=== PATIENT | female | born 1985 | race African-American/Black ===

== ENCOUNTER → 2018-10-07 | Outpatient (CLI) | payer MEDICAID ==
--- NOTE | 2018-10-07 11:21 | RADIOLOGY REPORT (SQ) ---
EXAM DESCRIPTION: U/S RETROPERITON (RENAL/AORTA) COMPLETED DATE/TIME: 10/07/2018 10:54 am REASON FOR STUDY: HTN (I10) I10 ESSENTIAL (PRIMARY) HYPERTENSION COMPARISON: None. TECHNIQUE: Dynamic and static grayscale images acquired of the kidneys and bladder and recorded on P ACS. Additional selected color Doppler and spectral images recorded. LIMITATIONS: None. FINDINGS: RIGHT KIDNEY: Normal size, 10.9 cm in length. Normal echogenicity. No solid or suspiciou s masses. No hydronephrosis. No calcifications. LEFT KIDNEY: Normal size, 12.1 cm in length. Normal echogenicity. No solid or suspicious masses. No hydronephrosis. No calcifications. BLADDER: No masses. OTHER FINDINGS: No other significant finding. IMPRESSION: NORMAL RENAL AND BLADDER ULTRASOUND. TECHNICAL DOCUMENTATION: JOB ID: [id number] [employer]- All Rights Reserved Reading location - IP/workstation name: [email or web address]
== END ==
LOC: RAD 09:40
PROVIDERS: ATTEND Nurse Practitioner Adult Health
DX: I10 Essential (primary) hypertension (principal)
CPT/HCPCS: 76770

== ENCOUNTER 2019-01-24 09:54 | Inpatient (IN) | payer MEDICAID ==
[2019-01-24] MEDS ORDERED: ONDANSETRON HCL INJ/PF 4 MG/2 ML SDV IV ONE ×2 (10:18→10:52)
--- NOTE | 2019-01-24 10:19 | ER Document Report ---
ED Medical Screen (RME) - General Chief Complaint: Nausea/Vomiting Stated Complaint: NAUSEA/VOMITING Time Seen by Provider: 01/24/19 10:13 Primary Care Provider: REBECCA BRADLEY FNP-C [Primary Care Provider] - Follow up as needed Mode of Arrival: Wheelchair Information source: Patient Notes: Patient presents complaining of headache that started yesterday with nausea vomiting diarrhea that started this morning. Patient complains of generalized abdominal pain. Patient also complains of feeling weak as well as feeling hot. Patient states that because of her nausea she has not been able to take any of her blood pressure medications today. Patient was given a 4 mg oral tablet of Zofran by a friend at home. I have greeted and performed a rapid initial assessment of this patient. A comprehensive ED assessment and evaluation of the patient, analysis of test results and completion of the medical decision making process will be conducted by additional ED providers. TRAVEL OUTSIDE OF THE [place] IN LAST 30 DAYS: No - Related Data Allergies/Adverse Reactions: No Known Allergies Allergy (Verified 11/11/14 10:47) Past Medical History - Social History Frequency of alcohol use: None Drug Abuse: None - Past Medical History Cardiac Medical History: Reports: Hx Hypertension Pulmonary Medical History: Reports: Hx Asthma Renal/ Medical History: Denies: Hx Peritoneal Dialysis Psychiatric Medical History: Reports: Hx Anxiety Physical Exam - Vital signs Vitals: Temp Pulse Resp BP Pulse Ox 98.0 F 80 16 216/128 H 100 01/24/19 10:02 01/24/19 10:02 01/24/19 10:01/24/19 10:02 01/24/19 10:02 - Abdominal Inspection: Obese Tenderness: Tender - Generalized abdominal tenderness - Neurological Neuro grossly intact: Yes Cognition: Normal Diaz Coma Scale Eye Opening: Spontaneous [place] Coma Scale Verbal: Oriented Diaz Coma Scale Motor: Obeys Commands Diaz Coma Scale Total: 15 Course - Vital Signs Vital signs: Temp Pulse Resp BP Pulse Ox 98.0 F 80 16 216/128 H 100 01/24/19 10:02 01/24/19 10:02 01/24/19 10:02 01/24/19 10:02 01/24/19 10:02 Doctor's Discharge - Discharge Referrals: REBECCA BRADLEY FNP-C [Primary Care Provider] - Follow up as needed
[2019-01-24] MEDS ORDERED: METOCLOPRAMIDE HCL INJ/PF 10 MG/2 ML SDV IV ONE (10:54)
[2019-01-24] MEDS ORDERED: DIPHENHYDRAMINE HCL 50 MG/ML VIAL IV ONE (10:55)
--- NOTE | 2019-01-24 10:55 | RADIOLOGY REPORT (SQ) ---
EXAM DESCRIPTION: CT HEAD WITHOUT COMPLETED DATE/TIME: 01/24/2019 10:41 am REASON FOR STUDY: MORALES, HTN COMPARISON: None. TECHNIQUE: Axial images acquired through the brain without intravenous contrast. Images reviewed wi th bone, brain and subdural windows. Images stored on PACS. All CT scanners at this facility use dose modulation, iterative reconstruction, and/or weight based d osing when appropriate to reduce radiation dose to as low as reasonably achievable (ALARA). [facility]: Dose Right [facility]: [facility]: Dose Right [facility]: Teradose 4D [facility]: [employer] RADIATION DOSE: CT Rad equipment meets quality standard of care and radiation dose reduction techniq ues were employed. CTDIvol: 53.2 mGy. DLP: 937 mGy-cm. mGy. LIMITATIONS: None. FINDINGS: VENTRICLES: Normal size and contour. CEREBRUM: No mass effect. No hemorrhage. No midline shift. Normal fisher/white matter differentiatio n. No evidence for acute territorial infarction. CEREBELLUM: No mass effect. No hemorrhage. No alteration of density. No evidence for acute infarct ion. EXTRAAXIAL SPACES: Prominent CSF intensity scratch at prominent CSF density dorsal to the cerebellum and extending supratentorial. Likely related to congenital variant and/or arachnoid cyst. This zhang ures over 5 cm maximally. ORBITS AND GLOBE: Symmetrical contour of the globes. CALVARIUM: No depressed skull fracture. PARANASAL SINUSES: No air-fluid level. SOFT TISSUES: No hematoma. IMPRESSION: Suspect posterior fossa arachnoid cyst. No evidence of acute intracranial abnormality, however. TECHNICAL DOCUMENTATION: JOB ID: [id number] [facility] [id number]: Final reports with documentation of one or more dose reduction techniques (e.g., Automate d exposure control, adjustment of the mA and/or kV according to patient size, use of iterative recons truction technique) 2010 [employer]- All Rights Reserved Reading location - IP/workstation name: [email or web address]
[2019-01-24 11:10] LABS: ABSOLUTE LYMPHOCYTES (AUTO) 0.8 10^3/uL (0.5-4.7); ABSOLUTE MONOCYTES (AUTO) 0.2 10^3/uL (0.1-1.4); ABSOLUTE NEUT (AUTO) 5.8 10^3/uL (1.7-8.2); BASOPHILS % (AUTO) 0.6 % (0-2); EOSINOPHILS % (AUTO) 0.2 % (0-6); HEMATOCRIT 45.1 % (36.0-47.0); HEMOGLOBIN 15.2 g/dL (12.0-15.5); LYMPHOCYTES % (AUTO) 11.5 % (13-45); MEAN CORPUSCULAR HGB CONC 33.7 g/dL (32.0-36.0); MEAN CORPUSCULAR VOLUME 83 fl (80-97); MONOCYTES % (AUTO) 3.1 % (3-13); PLATELET COUNT 274 10^3/uL (150-450); RED BLOOD COUNT 5.43 10^6/uL (3.72-5.28); RED CELL DISTRIBUTION WIDTH 13.6 % (11.5-14.0); SEGMENTED NEUTROPHILS % (AUTO) 84.6 % (42-78); TOTAL CELLS COUNTED % (AUTO) 100 %; WHITE BLOOD COUNT 6.9 10^3/uL (4.0-10.5)
--- NOTE | 2019-01-24 11:10 | ER Document Report ---
ED General - General Chief Complaint: Nausea/Vomiting Stated Complaint: NAUSEA/VOMITING Time Seen by Provider: 01/24/19 10:13 Primary Care Provider: REBECCA BRADLEY FNP-C [NO LOCAL MD] - Follow up as needed Mode of Arrival: Wheelchair Notes: Patient is complaining of a headache and nausea and vomiting and diarrhea. She says that her best friend told her that she had a headache last night, but patient does not remember it. She was able to sleep off and on last night, but when she awakened around 630 this morning, she went to the bathroom and started vomiting and having diarrhea. She also has a frontal headache. Patient gets headaches, but says that she never gets them this "strong". Patient is supposed to be on blood pressure medicines, but does not take it. Says she feels weak all over. Denies any chest pains. Denies any fever, although she has felt "hot". Patient says she has been evaluated and worked up by a accounting consultant for her high blood pressure. She says it must be inherited because several members of her family have very high blood pressure, as well. TRAVEL OUTSIDE OF THE [place] IN LAST 30 DAYS: No - Related Data Allergies/Adverse Reactions: No Known Allergies Allergy (Verified 11/11/14 10:47) Past Medical History - General Information source: Patient - Social History Smoking Status: Current Every Day Smoker Frequency of alcohol use: None Drug Abuse: None Family History: Reviewed & Not Pertinent Patient has suicidal ideation: No Patient has homicidal ideation: No - Past Medical History Cardiac Medical History: Reports: Hx Hypertension Pulmonary Medical History: Reports: Hx Asthma Endocrine Medical History: Denies: Hx Diabetes Mellitus Type 1, Hx Diabetes Mellitus Type 2 Psychiatric Medical History: Reports: Hx Anxiety Review of Systems - Review of Systems Notes: REVIEW OF SYSTEMS: CONSTITUTIONAL : Denies fever. EENT: Denies eye, ear, nose or mouth or throat pain or other symptoms. No sinus congestion. CARDIOVASCULAR: Denies chest pain. RESPIRATORY: Denies cough, chest congestion, or shortness of breath. GASTROINTESTINAL: Denies abdominal pain but has had nausea, vomiting, and diarrhea this morning. GENITOURINARY: Denies difficulty or painful urinating, urinary frequency, blood in urine. MUSCULOSKELETAL: Denies back or neck pain. Denies joint pain or swelling. SKIN: Denies rash or skin lesions. NEUROLOGICAL: Denies LOC or altered mental status. Complains of frontal headache, see HPI. Denies sensory loss or motor deficits. ALL OTHER SYSTEMS REVIEWED AND NEGATIVE. Physical Exam - Vital signs Vitals: Temp Pulse Resp BP Pulse Ox 98.0 F 80 16 216/128 H 100 01/24/19 10:02 01/24/19 10:02 01/24/19 10:02 01/24/19 10:02 01/24/19 10:02 Interpretation: Hypertensive Notes: PHYSICAL EXAMINATION: GENERAL: Well-appearing, in no acute distress. Blood pressure in triage in the right arm 222/139 and 216/128 in the left arm. HEAD: Atraumatic, normocephalic. EYES: Pupils equal round and reactive to light, extraocular movements intact. ENT: oropharynx clear without exudates. Moist mucous membranes. NECK: Normal range of motion, supple. LUNGS: Breath sounds clear and equal bilaterally. HEART: Regular rate and rhythm without murmurs. ABDOMEN: Soft, nontender. No guarding or rebound. No masses. BACK: No tenderness throughout entire back. EXTREMITIES: Normal range of motion without pain. NEUROLOGICAL: Normal speech, normal gait. Normal sensory, motor, and reflex exams. Awake, alert, and oriented x3. Cranial nerves normal. PSYCH: Normal mood, normal affect. SKIN: Warm, dry, no rashes. Course - Re-evaluation Re-evalutation: 01/24/19 11:29 Patient says she still has the headache, but her nausea is better. Blood pressure still quite high with systolic of 240. I am giving her 10 mg of h ydralazine IV and 0.1 mg of Catapres (clonidine) p.o. Patient CT of her head shows a probable arachnoid cyst in the posterior fossa. No evidence of any hemorrhage or bleeding. 01/24/19 13:44 Blood pressure is trended downward to a reasonable 185/107. Patient says she feels better. Little headache now and no longer nauseated. I have spoken with hospitalist who will admit the patient for management of her blood pressure. - Vital Signs Vital signs: Temp Pulse Resp BP Pulse Ox 98.0 F 80 20 185/107 H 96 01/24/19 10:02 01/24/19 10:02 01/24/19 13:18 01/24/19 13:18 01/24/19 13:18 - Laboratory Result Diagrams: 01/24/19 10:53 01/24/19 10:53 Laboratory results interpreted by me: 01/24/19 01/24/19 01/24/19 10:53 10:53 11:54 RBC 5.43 H Seg Neutrophils % 84.6 H Lymphocytes % 11.5 L Glucose 121 H Total Protein 8.4 H Urine Protein 100 H Urine Blood MODERATE H - Diagnostic Test Radiology reviewed: Image reviewed, Reports reviewed - Patient has an arachnoid cyst, but no acute changes and no bleeding or evidence of stroke. - EKG Interpretation by Oh EKG shows normal: Sinus rhythm Rate: Normal Rhythm: NSR Additional EKG results interpreted by me: 01/24/19 13:45 EKG shows no evidence of elevated ST segment or any acute changes. Discharge - Discharge Clinical Impression: Hypertension, Vomiting Condition: Stable Disposition: ADMITTED INPATIENT Admitting Provider: Brianda (Hospitalist) Unit Admitted: Telemetry Referrals: REBECCA BRADLEY FNP-C [NO LOCAL MD] - Follow up as needed
[2019-01-24] MEDS ORDERED: HYDRALAZINE HCL INJ/PF 20 MG/1 ML SDV IV ONE (11:28)
[2019-01-24] MEDS ORDERED: CLONIDINE HCL 0.1 MG TABLET PO ONE (11:28)
[2019-01-24 11:30] LABS: ALANINE AMINOTRANSFERASE 27 U/L (9-52); ALBUMIN 4.9 g/dL (3.5-5.0); ALKALINE PHOSPHATASE 72 U/L (38-126); ANION GAP 14 (5-19); ASPARTATE AMINO TRANSFERASE 23 U/L (14-36); BILIRUBIN,DIRECT 0.3 mg/dL (0.0-0.4); BILIRUBIN,TOTAL 1.1 mg/dL (0.2-1.3); BLOOD UREA NITROGEN 16 mg/dL (7-20); CALCIUM 10.2 mg/dL (8.4-10.2); CARBON DIOXIDE 27 mmol/L (22-30); CHLORIDE 99 mmol/L (98-107); GLUCOSE 121 mg/dL (75-110); LIPASE 76.6 U/L (23-300); POTASSIUM 3.8 mmol/L (3.6-5.0); SODIUM 139.5 mmol/L (137-145); TOTAL PROTEIN 8.4 g/dL (6.3-8.2)
[2019-01-24 12:24] LABS: APPEARANCE,URINE CLEAR; BILIRUBIN,URINE NEGATIVE (NEGATIVE); COLOR,URINE YELLOW; GLUCOSE, URINE NEGATIVE (NEGATIVE); KETONES,URINE NEGATIVE (NEGATIVE); LEUKOCYTE ESTERASE,URINE NEGATIVE (NEGATIVE); NITRITE,URINE NEGATIVE (NEGATIVE); PROTEIN,URINE 100 mg/dL (NEGATIVE); URINE SPECIFIC GRAVITY 1.018; UROBILINOGEN,URINE NEGATIVE mg/dL (<2.0)
[2019-01-24] MEDS ORDERED: ACETAMINOPHEN 325 MG TABLET PO PRN (14:09)
[2019-01-24] MEDS ORDERED: PROMETHAZINE HCL INJ 25 MG/1 ML VIAL IV PRN (14:09)
[2019-01-24] MEDS ORDERED: ONDANSETRON HCL INJ/PF 4 MG/2 ML SDV IV PRN (14:09)
[2019-01-24] MEDS ORDERED: LOSARTAN POTASSIUM 50 MG TABLET PO SCH (14:15)
--- NOTE | 2019-01-24 14:28 | PDOC H&P ---
History of Present Illness Admission Date/PCP: 01/24/19 13:54 Patient complains of: Nausea vomiting and abdominal pain from this morning History of Present Illness: ELEUTERIO BUNCH is a 33 year old female history of obesity with BMI of more than 44 and hypertension on 4 antihypertensives came to the emergency room complaining of nausea vomiting and diarrhea from this morning. Also complaining of mild abdominal pain she is also given the history of chills and cold coming and going. She was perfectly fine last night. Also complaining of headaches. Because of the nausea vomiting's Ms. to take her medications. test was negative in the ER. Denies any chest pains. On examination alert oriented communicating well agreed to stay in the hospital. Past Medical History Cardiac Medical History: Reports: Hypertension Pulmonary Medical History: Reports: Asthma Endocrine Medical History: Denies: Diabetes Mellitus Type 1, Diabetes Mellitus Type 2 Past Surgical History Past Surgical History: Reports: None Social History Smoking Status: Current Every Day Smoker Frequency of Alcohol Use: Occasional Hx Recreational Drug Use: No Hx Prescription Drug Abuse: No - Advance Directive Resuscitation Status: Full Code Family History Family History: Reviewed & Not Pertinent Parental Family History Reviewed: Yes - Hypertension and diabetes Children Family History Reviewed: Yes Sibling(s) Family History Reviewed.: Yes Medication/Allergy Home Medications: Carvedilol [Coreg 25 mg Tablet] 25 mg PO Q12 MDD SEE LABEL COMMENTS!!!!!!!!!!!! 01/24/19 Chlorthalidone [Chlorthalidone 50 mg Tablet] 100 mg PO DAILY MDD SEE LABEL COMMENTS!!!!!!!!!!!! 01/24/19 Hydralazine HCl [Apresoline 25 mg Tablet] 25 mg PO Q8 MDD SEE LABEL COMMENTS!!!!!!!!!!! 01/24/19 Losartan Potassium [Cozaar 100 mg Tablet] 100 mg PO DAILY MDD SEE LABEL COMMENTS!!!!!!!!!!!! 01/24/19 Allergies/Adverse Reactions: No Known Allergies Allergy (Verified 11/11/14 10:47) Review of Systems Constitutional: PRESENT: headache(s). ABSENT: fatigue, fever(s), night sweats, weakness, weight loss Eyes: ABSENT: visual disturbances Ears: ABSENT: hearing changes Nose, Mouth, and Throat: ABSENT: sore throat Cardiovascular: ABSENT: chest pain, dyspnea on exertion, edema, orthropnea, palpitations Respiratory: ABSENT: cough, hemoptysis Gastrointestinal: PRESENT: diarrhea, nausea, vomiting, other - Mild abdominal pain Genitourinary: ABSENT: dysuria, hematuria Musculoskeletal: PRESENT: as per HPI Neurological: PRESENT: other - Severe headaches. ABSENT: abnormal gait, abnormal speech, confusion, dizziness, focal weakness, syncope Psychiatric: ABSENT: anxiety, depression, homidical ideation, suicidal ideation Physical Exam Vital Signs: Temp Pulse Resp BP Pulse Ox 98.0 F 80 18 181/101 H 100 01/24/19 10:02 01/24/19 10:02 01/24/19 14:00 01/24/19 13:31 01/24/19 14:00 Intake & Output 01/23/19 01/24/19 01/25/19 06:59 06:59 06:59 Weight 113.9 kg General appearance: PRESENT: mild distress, morbidly obese Head exam: PRESENT: atraumatic Eye exam: PRESENT: PERRLA Ear exam: PRESENT: normal external ear exam Teeth exam: PRESENT: poor dentation Neck exam: ABSENT: carotid bruit, JVD, lymphadenopathy, thyromegaly Respiratory exam: PRESENT: decreased breath sounds Cardiovascular exam: PRESENT: bradycardia GI/Abdominal exam: PRESENT: normal bowel sounds, soft. ABSENT: distended, guarding, mass, organolmegaly, rebound, tenderness Rectal exam: PRESENT: deferred Neurological exam: PRESENT: alert, awake, oriented to person, oriented to place, oriented to time, oriented to situation, CN II-XII grossly intact. ABSENT: motor sensory deficit Psychiatric exam: PRESENT: appropriate affect, normal mood. ABSENT: homicidal ideation, suicidal ideation Results Laboratory Results: 01/24/19 10:53 01/24/19 10:53 01/24/19 01/24/19 01/24/19 10:53 10:53 10:53 WBC 6.9 RBC 5.43 H Hgb 15.2 Hct 45.1 MCV 83 MCH 28.0 MCHC 33.7 RDW 13.6 Plt Count 274 Seg Neutrophils % 84.6 H Lymphocytes % 11.5 L Monocytes % 3.1 Eosinophils % 0.2 Basophils % 0.6 Absolute Neutrophils 5.8 Absolute Lymphocytes 0.8 Absolute Monocytes 0.2 Absolute Eosinophils 0.0 Absolute Basophils 0.0 Sodium 139.5 Potassium 3.8 Chloride 99 Carbon Dioxide 27 Anion Gap 14 BUN 16 Creatinine 0.98 Est GFR ( Amer) > 60 Est GFR (Non-Af Amer) > 60 Glucose 121 H Calcium 10.2 Total Bilirubin 1.1 AST 23 ALT 27 Alkaline Phosphatase 72 Total Protein 8.4 H Albumin 4.9 Lipase 76.6 Serum HCG, Qual NEGATIVE Urine Color Urine Appearance Urine pH Ur Specific [place] Urine Protein Urine Glucose (UA) Urine Ketones Urine Blood Urine Nitrite Ur Leukocyte Esterase Urine WBC (Auto) Urine RBC (Auto) 01/24/19 11:54 WBC RBC Hgb Hct MCV MCH MCHC RDW Plt Count Seg Neutrophils % Lymphocytes % Monocytes % Eosinophils % Basophils % Absolute Neutrophils Absolute Lymphocytes Absolute Monocytes Absolute Eosinophils Absolute Basophils Sodium Potassium Chloride Carbon Dioxide Anion Gap BUN Creatinine Est GFR ( Amer) Est GFR (Non-Af Amer) Glucose Calcium Total Bilirubin AST ALT Alkaline Phosphatase Total Protein Albumin Lipase Serum HCG, Qual Urine Color YELLOW Urine Appearance CLEAR Urine pH 7.0 Ur Specific [place] 1.018 Urine Protein 100 H Urine Glucose (UA) NEGATIVE Urine Ketones NEGATIVE Urine Blood MODERATE H Urine Nitrite NEGATIVE Ur Leukocyte Esterase NEGATIVE Urine WBC (Auto) 3 Urine RBC (Auto) 1 Impressions: Head CT 01/24/19 10:17 IMPRESSION: Suspect posterior fossa arachnoid cyst. No evidence of acute intracranial abnormality, however. Assessment and Plan - Diagnosis (1) Hypertensive urgency Is this a current diagnosis for this admission?: Yes Plan: 01[birth year]24/20198378-12-jet[age]-old female came to the emergency room with very high blood pressures systolic blood pressure more than 200 diastolic blood pressure more than 120 associated with nausea vomiting diarrhea and mild abdominal pain and severe headaches. CT head was negative for acute changes. She is going to be admitted to telemetry started on the act diet. Cardiac enzymes x3 requested. Her most home medications Coreg 25 mg p.o. twice daily, losartan 100 mg p.o. daily, chlorthalidone 50 mg 2 tablets in the morning, hydralazine 25 mg p.o. 3 times daily are restarted. Patient was started on Protonix 40 mg p.o. twice daily and Zofran 4 mg IV every 4 as needed for nausea and vomiting. To check blood pressures every 4 hours. Urine drug screen is requested. DVT prophylaxis and GI prophylaxis are initiated. On examination no abd bruit. Started on hydralazine 10 mg IV q. 4 as needed for systolic blood pressure more than 150. (2) Morbidly obese Is this a current diagnosis for this admission?: Yes Plan: 01/24/2019-patient BMI is 44. Diet exercise weight loss lifestyle modifications are discussed dietary consult was requested. (3) Tobacco abuse Is this a current diagnosis for this admission?: Yes Plan: 01/24/2019-patient given the history of chronic smoking. Smoking counseling was provided for more than 10 minutes and nicotine patches offered. - Time Time Spent with patient: 25-34 minutes Smoking Cessation Education: over 10 minutes Medications reviewed and adjusted accordingly: Yes Anticipated discharge: Home
[2019-01-24 14:51] LABS: CREATINE KINASE MB 0.97 ng/mL (<4.55)
[2019-01-24 14:54] LABS: URINE AMPHETAMINES SCREEN NEGATIVE; URINE BARBITURATES SCREEN NEGATIVE; URINE BENZODIAZEPINES SCREEN NEGATIVE; URINE COCAINE SCREEN NEGATIVE; URINE MARIJUANA (THC) SCREEN NEGATIVE; URINE METHADONE SCREEN NEGATIVE; URINE PHENCYCLIDINE SCREEN NEGATIVE
[2019-01-24 14:56] LABS: TROPONIN I < 0.012 ng/mL
[2019-01-24] MEDS: ENOXAPARIN SODIUM INJ 40 MG/0.4 ML DISP.SYRIN SUBCUT SCH (15:09)
[2019-01-24] MEDS: HYDRALAZINE HCL 25 MG TABLET PO SCH ×2 (15:09→22:19)
[2019-01-24] MEDS: PANTOPRAZOLE SODIUM 40 MG TABLET.DR PO SCH (16:38)
[2019-01-24] MEDS: CHLORTHALIDONE 25 MG TABLET PO SCH (16:38)
[2019-01-24 17:32] LABS: CREATINE KINASE MB 0.88 ng/mL (<4.55)
[2019-01-24 17:40] LABS: TROPONIN I < 0.012 ng/mL
--- NOTE | 2019-01-24 18:01 | RADIOLOGY REPORT (SQ) ---
EXAM DESCRIPTION: CHEST 2 VIEWS COMPLETED DATE/TIME: 01/24/2019 5:39 pm REASON FOR STUDY: shortness of breath COMPARISON: Chest x-ray 08/05/2013. EXAM PARAMETERS: NUMBER OF VIEWS: two views TECHNIQUE: Digital Frontal and Lateral radiographic views of the chest acquired. RADIATION DOSE: NA LIMITATIONS: none FINDINGS: LUNGS AND PLEURA: No consolidation, pneumothorax or pleural effusion. MEDIASTINUM AND HILAR STRUCTURES: No masses or contour abnormalities. HEART AND VASCULAR STRUCTURES: Heart normal size. No evidence for failure. BONES: No acute findings. HARDWARE: None in the chest. IMPRESSION: NO ACUTE RADIOGRAPHIC FINDING IN THE CHEST. TECHNICAL DOCUMENTATION: JOB ID: [id number] 2010 [employer]- All Rights Reserved Reading location - IP/workstation name: [email or web address]
[2019-01-24] MEDS: CARVEDILOL 12.5 MG TABLET PO SCH (22:19)
--- NOTE | 2019-01-24 23:42 | EKG REPORT ---
SEVERITY:- ABNORMAL ECG - SINUS RHYTHM PROLONGED QT INTERVAL : Confirmed by: Bijal Gaitan MD 24-Jan-2019 23:41:42
[2019-01-25 05:02] LABS: ABSOLUTE EOSINOPHILS # (AUTO) 0.1 10^3/uL (0.0-0.6); ABSOLUTE MONOCYTES (AUTO) 0.6 10^3/uL (0.1-1.4); ABSOLUTE NEUT (AUTO) 4.8 10^3/uL (1.7-8.2); BASOPHILS % (AUTO) 0.3 % (0-2); EOSINOPHILS % (AUTO) 1.1 % (0-6); HEMATOCRIT 40.3 % (36.0-47.0); HEMOGLOBIN 13.5 g/dL (12.0-15.5); LYMPHOCYTES % (AUTO) 26.9 % (13-45); MEAN CORPUSCULAR HEMOGLOBIN 28.1 pg (27.0-33.4); MEAN CORPUSCULAR HGB CONC 33.6 g/dL (32.0-36.0); MEAN CORPUSCULAR VOLUME 84 fl (80-97); MONOCYTES % (AUTO) 7.4 % (3-13); PLATELET COUNT 260 10^3/uL (150-450); RED BLOOD COUNT 4.81 10^6/uL (3.72-5.28); RED CELL DISTRIBUTION WIDTH 13.5 % (11.5-14.0); SEGMENTED NEUTROPHILS % (AUTO) 64.3 % (42-78); TOTAL CELLS COUNTED % (AUTO) 100 %; WHITE BLOOD COUNT 7.5 10^3/uL (4.0-10.5)
[2019-01-25 05:17] LABS: INTERNATIONAL RATION (INR) 0.98; PROTHROMBIN TIME 13.4 SEC (11.4-15.4)
[2019-01-25 05:27] LABS: ALANINE AMINOTRANSFERASE 21 U/L (9-52); ALBUMIN 3.7 g/dL (3.5-5.0); ALKALINE PHOSPHATASE 51 U/L (38-126); ANION GAP 11 (5-19); ASPARTATE AMINO TRANSFERASE 14 U/L (14-36); BILIRUBIN,DIRECT 0.2 mg/dL (0.0-0.4); BILIRUBIN,TOTAL 0.6 mg/dL (0.2-1.3); BLOOD UREA NITROGEN 19 mg/dL (7-20); CALCIUM 8.8 mg/dL (8.4-10.2); CARBON DIOXIDE 27 mmol/L (22-30); CHLORIDE 102 mmol/L (98-107); CHOLESTEROL 169.62 mg/dL (0-200); GLUCOSE 103 mg/dL (75-110); POTASSIUM 3.4 mmol/L (3.6-5.0); SODIUM 139.9 mmol/L (137-145); TOTAL PROTEIN 6.8 g/dL (6.3-8.2); TRIGLYCERIDES 96 mg/dL (<150)
[2019-01-25 05:37] LABS: DIRECT LDL 112 mg/dL (<100)
[2019-01-25 05:38] LABS: CREATINE KINASE MB 0.75 ng/mL (<4.55); TROPONIN I 0.061 ng/mL
[2019-01-25] MEDS: HYDRALAZINE HCL 25 MG TABLET PO SCH ×3 (05:47→21:10)
[2019-01-25] MEDS: PANTOPRAZOLE SODIUM 40 MG TABLET.DR PO SCH ×2 (05:47→16:12)
[2019-01-25] MEDS ORDERED: POTASSIUM CHLORIDE 10 MEQ CAPSULE.ER PO ONE (08:08)
[2019-01-25] MEDS: CHLORTHALIDONE 25 MG TABLET PO SCH (09:26)
[2019-01-25] MEDS: CARVEDILOL 12.5 MG TABLET PO SCH ×2 (09:26→21:10)
[2019-01-25] MEDS: ENOXAPARIN SODIUM INJ 40 MG/0.4 ML DISP.SYRIN SUBCUT SCH (09:28)
[2019-01-25] MEDS: 1/2 NORMAL SALINE 1,000 ML IV PRN ×2 (09:42→21:10)
[2019-01-25] MEDS ORDERED: CHLORTHALIDONE 100 MG PO SCH (10:00)
--- NOTE | 2019-01-25 10:00 | PDOC PROGRESS REPORT ---
Subjective Progress Note for:: 01/25/19 Subjective:: 33 year old female history of obesity with BMI of more than 44 and hypertension on 4 antihypertensives came to the emergency room complaining of nausea vomiting and diarrhea from this morning. Also complaining of mild abdominal pain she is also given the history of chills and cold coming and going. She was perfectly fine last night. Also complaining of headaches. Because of the nausea vomiting's Ms. to take her medications. test was negative in the ER. Denies any chest pains. On examination alert oriented communicating well agreed to stay in the hospital. 33-year-old female with history of hypertension and BMI of more than 44 admitted with hypertensive urgency and also complaining of nausea vomiting and diarrhea nausea vomiting and diarrhea resolved her blood pressure today is 1 4784 improved but her baseline creatinine is unknown she came in with creatinine of 0.98 and today's creatinine is 1.48. Acute kidney injury may be secondary to poor oral intake. She may have to stay another day at least to get IV fluids and the plan is to recheck the labs tomorrow. Reason For Visit: HYPERTENSION URGENCY Physical Exam Vital Signs: Temp Pulse Resp BP Pulse Ox 98.1 F 77 18 142/95 H 97 01/25/19 08:00 01/25/19 08:00 01/25/19 08:00 01/25/19 08:00 01/25/19 08:00 Intake & Output 01/24/19 01/25/19 01/26/19 06:59 06:59 06:59 Intake Total 740 Balance 740 Weight 116.3 kg General appearance: PRESENT: no acute distress Head exam: PRESENT: atraumatic Eye exam: PRESENT: PERRLA Mouth exam: PRESENT: moist, tongue midline Respiratory exam: PRESENT: clear to auscultation [place]. ABSENT: rales, rhonchi, wheezes Cardiovascular exam: PRESENT: RRR. ABSENT: diastolic murmur, rubs, systolic murmur GI/Abdominal exam: PRESENT: normal bowel sounds, soft. ABSENT: distended, guarding, mass, organolmegaly, rebound, tenderness Rectal exam: PRESENT: deferred Neurological exam: PRESENT: alert, awake, oriented to person, oriented to place, oriented to time, oriented to situation, CN II-XII grossly intact. ABSENT: motor sensory deficit Psychiatric exam: PRESENT: appropriate affect, normal mood. ABSENT: homicidal ideation, suicidal ideation Results Laboratory Results: 01/25/19 04:02 01/25/19 04:02 01/24/19 01/24/19 01/24/19 10:53 10:53 10:53 WBC 6.9 RBC 5.43 H Hgb 15.2 Hct 45.1 MCV 83 MCH 28.0 MCHC 33.7 RDW 13.6 Plt Count 274 Seg Neutrophils % 84.6 H Lymphocytes % 11.5 L Monocytes % 3.1 Eosinophils % 0.2 Basophils % 0.6 Absolute Neutrophils 5.8 Absolute Lymphocytes 0.8 Absolute Monocytes 0.2 Absolute Eosinophils 0.0 Absolute Basophils 0.0 Sodium 139.5 Potassium 3.8 Chloride 99 Carbon Dioxide 27 Anion Gap 14 BUN 16 Creatinine 0.98 Est GFR ( Amer) > 60 Est GFR (Non-Af Amer) > 60 Glucose 121 H Calcium 10.2 Magnesium Total Bilirubin 1.1 AST 23 ALT 27 Alkaline Phosphatase 72 Total Protein 8.4 H Albumin 4.9 Triglycerides Cholesterol LDL Cholesterol Direct VLDL Cholesterol HDL Cholesterol Lipase 76.6 TSH Serum HCG, Qual NEGATIVE Urine Color Urine Appearance Urine pH Ur Specific Rena Lara Urine Protein Urine Glucose (UA) Urine Ketones Urine Blood Urine Nitrite Ur Leukocyte Esterase Urine WBC (Auto) Urine RBC (Auto) 01/24/19 01/25/19 01/25/19 11:54 04:02 04:02 WBC 7.5 RBC 4.81 Hgb 13.5 Hct 40.3 MCV 84 MCH 28.1 MCHC 33.6 RDW 13.5 Plt Count 260 Seg Neutrophils % 64.3 Lymphocytes % 26.9 Monocytes % 7.4 Eosinophils % 1.1 Basophils % 0.3 Absolute Neutrophils 4.8 Absolute Lymphocytes 2.0 Absolute Monocytes 0.6 Absolute Eosinophils 0.1 Absolute Basophils 0.0 Sodium 139.9 Potassium 3.4 L Chloride 102 Carbon Dioxide 27 Anion Gap 11 BUN 19 Creatinine 1.43 H Est GFR ( Amer) 51 L Est GFR (Non-Af Amer) 42 L Glucose 103 Calcium 8.8 Magnesium 2.2 Total Bilirubin 0.6 AST 14 ALT 21 Alkaline Phosphatase 51 Total Protein 6.8 Albumin 3.7 Triglycerides 96 Cholesterol 169.62 LDL Cholesterol Direct 112 H VLDL Cholesterol 19.0 HDL Cholesterol 40 Lipase TSH Serum HCG, Qual Urine Color YELLOW Urine Appearance CLEAR Urine pH 7.0 Ur Specific Rena Lara 1.018 Urine Protein 100 H Urine Glucose (UA) NEGATIVE Urine Ketones NEGATIVE Urine Blood MODERATE H Urine Nitrite NEGATIVE Ur Leukocyte Esterase NEGATIVE Urine WBC (Auto) 3 Urine RBC (Auto) 1 01/25/19 04:02 WBC RBC Hgb Hct MCV MCH MCHC RDW Plt Count Seg Neutrophils % Lymphocytes % Monocytes % Eosinophils % Basophils % Absolute Neutrophils Absolute Lymphocytes Absolute Monocytes Absolute Eosinophils Absolute Basophils Sodium Potassium Chloride Carbon Dioxide Anion Gap BUN Creatinine Est GFR ( Amer) Est GFR (Non-Af Amer) Glucose Calcium Magnesium Total Bilirubin AST ALT Alkaline Phosphatase Total Protein Albumin Triglycerides Cholesterol LDL Cholesterol Direct VLDL Cholesterol HDL Cholesterol Lipase TSH 0.95 Serum HCG, Qual Urine Color Urine Appearance Urine pH Ur Specific Rena Lara Urine Protein Urine Glucose (UA) Urine Ketones Urine Blood Urine Nitrite Ur Leukocyte Esterase Urine WBC (Auto) Urine RBC (Auto) 01/24/19 01/24/19 01/24/19 10:53 10:53 16:44 Creatine Kinase 194 H 153 H CK-MB (CK-2) 0.97 Troponin I < 0.012 01/24/19 01/25/19 01/25/19 16:44 04:02 04:02 Creatine Kinase 148 H CK-MB (CK-2) 0.88 0.75 Troponin I < 0.012 0.061 Impressions: Chest X-Ray 01/24/19 00:00 IMPRESSION: NO ACUTE RADIOGRAPHIC FINDING IN THE CHEST. Head CT 01/24/19 10:17 IMPRESSION: Suspect posterior fossa arachnoid cyst. No evidence of acute intracranial abnormality, however. Assessment and Plan - Diagnosis (1) Hypertensive urgency Is this a current diagnosis for this admission?: Yes Plan: 01/24/[id number]-vmub-old female came to the emergency room with very high blood pressures systolic blood pressure more than 200 diastolic blood pressure more than 120 associated with nausea vomiting diarrhea and mild abdominal pain and severe headaches. CT head was negative for acute changes. She is going to be admitted to telemetry started on the act diet. Cardiac enzymes x3 requested. Her most home medications Coreg 25 mg p.o. twice daily, losartan 100 mg p.o. daily, chlorthalidone 50 mg 2 tablets in the morning, hydralazine 25 mg p.o. 3 times daily are restarted. Patient was started on Protonix 40 mg p.o. twice daily and Zofran 4 mg IV every 4 as needed for nausea and vomiting. To check blood pressures every 4 hours. Urine drug screen is requested. DVT prophylaxis and GI prophylaxis are initiated. On examination no abd bruit. Started on hydralazine 10 mg IV q. 4 as needed for systolic blood pressure more than 150. 01/25/[id number]-cffd-old female admitted with hypertensive urgency blood pressure relatively controlled well today's blood pressure is 147/84. Patient developed JUDE from last night losartan was discontinued and plan is to continue the other management including IV hydralazine 10 mg every 6 hours for systolic blood pr essure more than 150. (2) Morbidly obese Is this a current diagnosis for this admission?: Yes (3) Tobacco abuse Is this a current diagnosis for this admission?: Yes (4) JUDE (acute kidney injury) Is this a current diagnosis for this admission?: Yes Plan: 01/25/2019-patient's admission serum creatinine is 0.98 and a repeat serum creatinine is 1.48. Acute kidney injury may be secondary to nausea vomiting diarrhea. Patient came to the hospital with elbow symptoms and though symptoms are resolved. - Time Time Spent with patient: 15-24 minutes Medications reviewed and adjusted accordingly: Yes Anticipated discharge: Home
[2019-01-25] MEDS ORDERED: MAGNESIUM CITRATE 296 ML BOTTLE PO ONE (16:04)
[2019-01-25] MEDS: HYDRALAZINE HCL INJ/PF 20 MG/1 ML SDV IV PRN (16:07)
[2019-01-25] MEDS ORDERED: HYDRALAZINE HCL INJ/PF 20 MG/1 ML SDV IV ONE (17:30)
[2019-01-26 05:22] LABS: ABSOLUTE EOSINOPHILS # (AUTO) 0.1 10^3/uL (0.0-0.6); ABSOLUTE MONOCYTES (AUTO) 0.3 10^3/uL (0.1-1.4); ABSOLUTE NEUT (AUTO) 2.4 10^3/uL (1.7-8.2); BASOPHILS % (AUTO) 0.5 % (0-2); EOSINOPHILS % (AUTO) 1.2 % (0-6); HEMATOCRIT 41.6 % (36.0-47.0); HEMOGLOBIN 13.7 g/dL (12.0-15.5); LYMPHOCYTES % (AUTO) 41.4 % (13-45); MEAN CORPUSCULAR HEMOGLOBIN 27.8 pg (27.0-33.4); MEAN CORPUSCULAR VOLUME 84 fl (80-97); MONOCYTES % (AUTO) 6.9 % (3-13); PLATELET COUNT 237 10^3/uL (150-450); RED BLOOD COUNT 4.95 10^6/uL (3.72-5.28); RED CELL DISTRIBUTION WIDTH 13.5 % (11.5-14.0); TOTAL CELLS COUNTED % (AUTO) 100 %; WHITE BLOOD COUNT 4.8 10^3/uL (4.0-10.5)
[2019-01-26 05:48] LABS: ALANINE AMINOTRANSFERASE 21 U/L (9-52); ALBUMIN 3.8 g/dL (3.5-5.0); ALKALINE PHOSPHATASE 57 U/L (38-126); ANION GAP 12 (5-19); ASPARTATE AMINO TRANSFERASE 14 U/L (14-36); BILIRUBIN,DIRECT 0.2 mg/dL (0.0-0.4); BILIRUBIN,TOTAL 0.9 mg/dL (0.2-1.3); BLOOD UREA NITROGEN 16 mg/dL (7-20); CALCIUM 9.2 mg/dL (8.4-10.2); CARBON DIOXIDE 25 mmol/L (22-30); CHLORIDE 103 mmol/L (98-107); GLUCOSE 96 mg/dL (75-110); POTASSIUM 3.7 mmol/L (3.6-5.0); SODIUM 139.8 mmol/L (137-145); TOTAL PROTEIN 6.9 g/dL (6.3-8.2)
[2019-01-26] MEDS: HYDRALAZINE HCL 25 MG TABLET PO SCH (06:47)
[2019-01-26] MEDS: PANTOPRAZOLE SODIUM 40 MG TABLET.DR PO SCH (06:47)
[2019-01-26] MEDS: 1/2 NORMAL SALINE 1,000 ML IV PRN (06:48)
[2019-01-26] MEDS ORDERED: PROMETHAZINE HCL INJ 25 MG/1 ML VIAL IV PRN (09:30)
--- NOTE | 2019-01-26 10:29 | PDOC DISCHARGE SUMMARY ---
General - Admit/Disc Date/PCP Admission Date/Primary Care Provider: 01/24/19 13:54 Discharge Date: 01/26/19 - Discharge Diagnosis (1) Hypertensive urgency Is this a current diagnosis for this admission?: Yes Summary: 01/24/[id number]-kxyc-old female came to the emergency room with very high blood pressures systolic blood pressure more than 200 diastolic blood pressure more than 120 associated with nausea vomiting diarrhea and mild abdominal pain and severe headaches. CT head was negative for acute changes. She is going to be admitted to telemetry started on the act diet. Cardiac enzymes x3 requested. Her most home medications Coreg 25 mg p.o. twice daily, losartan 100 mg p.o. daily, chlorthalidone 50 mg 2 tablets in the morning, hydralazine 25 mg p.o. 3 times daily are restarted. Patient was started on Protonix 40 mg p.o. twice daily and Zofran 4 mg IV every 4 as needed for nausea and vomiting. To check blood pressures every 4 hours. Urine drug screen is requested. DVT prophylaxis and GI prophylaxis are initiated. On examination no abd bruit. Started on hydralazine 10 mg IV q. 4 as needed for systolic blood pressure more than 150. 01/25/[id number]-bdwo-old female admitted with hypertensive urgency blood pressure relatively controlled well today's blood pressure is 147/84. Patient developed JUDE from last night losartan was discontinued and plan is to continue the other management including IV hydralazine 10 mg every 6 hours for systolic blood pressure more than 150. 01/26/[id number]-gyld-old female admitted with hypertensive urgency in the emergency room systolic blood pressure is more than 200 on her diastolic blood pressures more than 120. IV hydralazine and clonidine was given in the emergency room. Blood pressures are much improved during the hospital stay after instillation of the home medications. Losartan was discontinued because patient developed JUDE during the hospital stay. And she was also started on IV fluids half-normal saline at 100 cc/h today's blood pressure is 138/73. Patient is advised to continue to hold her losartan and follow-up with primary care physician in 3 to 5 days for further evaluation and management. (2) Morbidly obese Is this a current diagnosis for this admission?: Yes Summary: 01/26/2019-patient BMI is more than 45 diet exercise weight loss lifestyle modifications are discussed during the hospital stay and dietary consult was requested during the hospital stay. (3) Tobacco abuse Is this a current diagnosis for this admission?: Yes (4) JUDE (acute kidney injury) Is this a current diagnosis for this admission?: Yes Summary: 01/25/2019-patient's admission serum creatinine is 0.98 and a repeat serum creatinine is 1.48. Acute kidney injury may be secondary to nausea vomiting diarrhea. Patient came to the hospital with elbow symptoms and though symptoms are resolved. 01/26/2019-patient's admission creatinine is 0.98 worsened to 1.48 with IV fluids it was improved to 1.11 today acute kidney injury most likely secondary to n ausea vomitings and diarrhea resolving. - Additional Information Resuscitation Status: Full Code Discharge Diet: Cardiac Discharge Activity: Activity As Tolerated Prescriptions: Alprazolam [Xanax 0.5 mg Tablet] 0.5 mg PO Q8HP PRN 3 Days #10 tab PRN Reason: Home Medications: Carvedilol [Coreg 25 mg Tablet] 25 mg PO Q12 MDD SEE LABEL COMMENTS!!!!!!!!!!!! 01/24/19 Chlorthalidone [Chlorthalidone 50 mg Tablet] 100 mg PO DAILY MDD SEE LABEL COMMENTS!!!!!!!!!!!! 01/24/19 Hydralazine HCl [Apresoline 25 mg Tablet] 25 mg PO Q8 MDD SEE LABEL COMMENTS!!!!!!!!!!! 01/24/19 Alprazolam [Xanax 0.5 mg Tablet] 0.5 mg PO Q8HP PRN 3 Days #10 tab 01/26/19 Carvedilol [Coreg 12.5 mg Tablet] 25 mg PO Q12 tablet 01/26/19 History of Present Illness History of Present Illness: ELEUTERIO BUNCH is a 33 year old female history of obesity with BMI of more than 44 and hypertension on 4 antihypertensives came to the emergency room complaining of nausea vomiting and diarrhea from this morning. Also complaining of mild abdominal pain she is also given the history of chills and cold coming and going. She was perfectly fine last night. Also complaining of headaches. Because of the nausea vomiting's Ms. to take her medications. test was negative in the ER. Denies any chest pains. On examination alert oriented communicating well agreed to stay in the hospital. Hospital Course Hospital Course: 01/26/2019-this 33-year-old female came to the emergency with complaints of nausea vomiting and diarrhea though symptoms are resolved during the hospital stay also found to have hypertensive urgency/crisis in the emergency room with a blood pressure 200/125 in the emergency room she was given clonidine and hydralazine and her home medications were continued during the hospital stay. Placed on IV hydralazine 10 mg every 6 hours PRN for systolic blood pressure more than 150. Blood pressure this morning is 138/73 on admission patient's creatinine is 0.98 and a worsened to 1.48 yesterday most likely due to nausea vomiting diarrhea prior to the hospitalization. With IV fluids creatinine improved to 1.11 acute kidney injury most likely secondary to prerenal causes resolving. Patient is advised to continue to hold losartan until she was reevaluated by the primary care physician. Physical Exam Vital Signs: Temp Pulse Resp BP Pulse Ox 98.0 F 71 16 155/80 H 96 01/26/19 07:52 01/26/19 07:52 01/26/19 07:52 01/26/19 07:52 01/26/19 07:52 Intake & Output 01/25/19 01/26/19 01/27/19 06:59 06:59 06:59 Intake Total 740 2872 Balance 740 2872 Weight 116.3 kg 116.3 kg Results Laboratory Results: 01/26/19 04:15 01/26/19 04:15 01/26/19 01/26/19 04:15 04:15 WBC 4.8 RBC 4.95 Hgb 13.7 Hct 41.6 MCV 84 MCH 27.8 MCHC 33.0 RDW 13.5 Plt Count 237 Seg Neutrophils % 50.0 Lymphocytes % 41.4 Monocytes % 6.9 Eosinophils % 1.2 Basophils % 0.5 Absolute Neutrophils 2.4 Absolute Lymphocytes 2.0 Absolute Monocytes 0.3 Absolute Eosinophils 0.1 Absolute Basophils 0.0 Sodium 139.8 Potassium 3.7 Chloride 103 Carbon Dioxide 25 Anion Gap 12 BUN 16 Creatinine 1.11 Est GFR ( Amer) > 60 Est GFR (Non-Af Amer) 57 L Glucose 96 Calcium 9.2 Magnesium 2.4 H Total Bilirubin 0.9 AST 14 ALT 21 Alkaline Phosphatase 57 Total Protein 6.9 Albumin 3.8 01/24/19 01/24/19 01/24/19 10:53 10:53 16:44 Creatine Kinase 194 H 153 H CK-MB (CK-2) 0.97 Troponin I < 0.012 01/24/19 01/25/19 01/25/19 16:44 04:02 04:02 Creatine Kinase 148 H CK-MB (CK-2) 0.88 0.75 Troponin I < 0.012 0.061 Impressions: Chest X-Ray 01/24/19 00:00 IMPRESSION: NO ACUTE RADIOGRAPHIC FINDING IN THE CHEST. Head CT 01/24/19 10:17 IMPRESSION: Suspect posterior fossa arachnoid cyst. No evidence of acute intracranial abnormality, however. Qualifiers - * PATIENT BEING DISCHARGED WITH ANY OF THE FOLLOWING DIAGNOSIS: No VTE patient discharged on overlapping Therapy?: No Stroke Pt being discharged on Anti-thrombolytic therapy?: Yes Acute Heart Failure Is this a Heart Failure Patient?: No Plan Time Spent: Less than 30 Minutes
[2019-01-26] MEDS: ENOXAPARIN SODIUM INJ 40 MG/0.4 ML DISP.SYRIN SUBCUT SCH (11:27)
[2019-01-26] MEDS: CARVEDILOL 12.5 MG TABLET PO SCH (11:29)
[2019-01-26] MEDS: CHLORTHALIDONE 25 MG TABLET PO SCH (11:29)
[2019-01-26 13:18] VITALS: BP 168/102
[2019-01-26] MEDS: HYDRALAZINE HCL INJ/PF 20 MG/1 ML SDV IV PRN (13:24)
== END 2019-01-26 14:15 | disposition home or self-care (01) | DRG 305 ==
LOC: ER 09:54 → EH 13:54 → 4N 14:40
PROVIDERS: ADMIT Internal Medicine; ATTEND Internal Medicine
DX: I16.0 Hypertensive urgency (principal); Z68.42 Body mass index [BMI] 45.0-49.9, adult; N17.9 Acute kidney failure, unspecified; E66.01 Morbid (severe) obesity due to excess calories; F41.9 Anxiety disorder, unspecified; E11.9 Type 2 diabetes mellitus without complications; I10 Essential (primary) hypertension; F17.200 Nicotine dependence, unspecified, uncomplicated
CPT/HCPCS: 36415; 70450; 71046; 80053; 80061; 80307; 81001; 82550; 82553; 83036; 83690; 83735; 84443; 84484; 84703; 85025; 85610; 93005; 93010; 96374; 96375; 99285; J0360; J1200; J1650; J2405; J2765; J3490

== ENCOUNTER → 2019-11-04 | Outpatient (CLI) | payer MEDICAID ==
--- NOTE | 2019-11-04 14:20 | RADIOLOGY REPORT (SQ) ---
EXAM DESCRIPTION: VENOUS UNILATERAL UPPER COMPLETED DATE/TIME: 11/04/2019 2:06 pm REASON FOR STUDY: RUE PAIN/SWELLING M79.631 PAIN IN RIGHT FOREARM COMPARISON: None. TECHNIQUE: Dynamic and static fisher scale and color images acquired of the right arm venous system. S elected spectral images acquired with additional compression and augmentation maneuvers. The contrala teral subclavian vein and internal jugular vein were also imaged. Images stored on PACS. LIMITATIONS: None. FINDINGS: INTERNAL JUGULAR VEIN: Normal phasicity, compression, augmentation. No visualized echogeni c material on fisher scale. No defects on color images. Comparison opposite side normal. SUBCLAVIAN VEIN: Normal compression, augmentation. No visualized echogenic material on fisher scale. No defects on color images. AXILLARY VEIN: Normal compression, augmentation. No visualized echogenic material on fisher scale. No d efects on color images. BRACHIAL VEIN: Normal compression, augmentation. No visualized echogenic material on fisher scale. No d efects on color images. BASILIC VEIN: Normal compression, augmentation. No visualized echogenic material on fisher scale. No de fects on color images. CEPHALIC VEIN: Normal compression, augmentation. No visualized echogenic material on fisher scale. No d efects on color images. OTHER: No other significant finding. CONTRALATERAL SUBCLAVIAN VEIN AND INTERNAL JUGULAR VEIN: Normal phasicity, compression and augmentation. No visualized echogenic material on fisher scale. No de fects on color images. IMPRESSION: NO EVIDENCE DVT OR SVT IN THE RIGHT ARM. TECHNICAL DOCUMENTATION: JOB ID: [id number] 2010 [employer]- All Rights Reserved Reading location - IP/workstation name: [email or web address]
== END ==
LOC: SP 12:37
PROVIDERS: ATTEND Nurse Practitioner Family
DX: M79.631 Pain in right forearm (principal)
CPT/HCPCS: 93971